=== PATIENT | female | born 1965 | race Caucasian/White ===

== ENCOUNTER 2023-01-29 19:45 | Emergency (ER) | payer MEDICAID, SELFPAY ==
[2023-01-29 19:50] VITALS: BP 160/96; PULSE 88; RESP 16; TEMP 36.9; O2SAT 93
--- NOTE | 2023-01-29 19:58 | ED_ITS ---
HPI - Dental/Oral General Chief complaint: Dental/Oral Stated complaint: dental Time Seen by Provider: 01/29/23 19:46 Source: patient Mode of arrival: walk-in History of Present Illness HPI Narrative: Patient is a 57-year-old female presents to the Emergency Room with concerns of right lower anterior jaw dental pain, states she knows she has poor dentition here with some teeth becoming loose. Her chief concern is infection with onset of pain, denies swelling. Patient sees [facility] for clinic care. Patient denies any mouth trauma or injury. She denies any fevers or chills and states she finds feels well. MD Complaint: Reports tooth pain Location: Tooth # (27) Onset (ago): day(s) Relieving factors: nothing Related Data Previous Rx's Medication Instructions Recorded penicillin V potassium 500 mg 500 mg PO TID dental pain 10 days 01/29/23 tablet #30 tabs Allergies Allergy/AdvReac Type Severity Reaction Status Date / Time No Known Drug Allergies Allergy Verified 01/29/23 19:58 Review of Systems ROS Constitutional Denies: fever or chills Eyes Denies: change in vision Ears, nose, mouth, and throat Denies: throat pain, swelling of lips/tongue or dry mouth PFSH PFSH Social History Smoking status: Current every day smoker Exam Narrative: Exam Narrative: Nurses notes reviewed and patient is noted to be non-hypoxic. General: The patient is comfortable, alert and oriented x3, well appearing, non toxic in no apparent distress. Head: Atraumatic and normocephalic. Eyes: Normal conjunctiva, no exudates. ENT: The oropharynx is normal. No pharyngeal erythema, uvular edema, tonsillar exudates, asymmetry or trismus. Uvula is midline. Mouth is normal to inspection With the exception of a pain on percussion of the tooth #27,28,29 and and evidence of dental caries. There is no evidence of facial asymmetry or abscess formation. Floor of the mouth is soft. No tenderness in the submental or submandibular space. No tongue elevation or deviation. The patient has no evidence of periapical abscess, gingivitis, ANUG or other acute pathology. Airway is patent. Neck: The neck demonstrates normal range of motion. No meningeals signs are present. No stridor. No masses or lymphandenopathy noted. Respiratory: No acute distress, lungs are clear to auscultation, no wheezing, rhonchi, or rales noted. No stridor or retractions are noted. Cardiovascular: Regular rate and rhythm Skin: The skin exam shows no evidence of rashes Neuro: Alert and oriented x4, normal speech Lymphatic: No cervical lymphadenopathy Constitutional: Vital Signs, click to edit/add: Vital Signs - 24 hr 01/29/23 19:50 Temperature 98.4 F Pulse Rate [Monito r] 88 Respiratory Rate 16 Blood Pressure [Ri ght Arm] 160/96 H Pulse Oximetry 93 L Oxygen Delivery Me thod Room Air Course Vital Signs Vital signs: Vital Signs Temperature 98.4 F 01/29/23 19:50 Pulse Rate 88 01/29/23 19:50 Respiratory Rate 16 01/29/23 19:50 Blood Pressure 160/96 H 01/29/23 19:50 Pulse Oximetry 93 L 01/29/23 19:50 Oxygen Delivery Method Room Air 01/29/23 19:50 Temperature 98.4 F 01/29/23 19:50 Pulse Rate 88 01/29/23 19:50 Respiratory Rate 16 01/29/23 19:50 Blood Pressure 160/96 H 01/29/23 19:50 Pulse Oximetry 93 L 01/29/23 19:50 Oxygen Delivery Method Room Air 01/29/23 19:50 MDM - Dental/Oral MDM Narrative Medical decision making narrative: Patient reports. Beginning to dentist promptly, requesting antibiotics, no evidence of abscess but dental tenderness present on palpation, and early infection possible, we'll start penicillin three times a day with food. She will contact dental clinics tomorrow to discuss follow-up for evaluation, she has no dentition in the the upper palate The patient is to followup with primary care physician/dental clinic in next 2-3 days or to return to the emergency department should any of the signs or symptoms worsen or new symptoms develop. Patient had questions answered. The patient agrees with the following Diagnosis and Treatment plan and the patient will be discharged home. Smoking Cessation Patient Acknowledges Need for Cessation: Yes Discharge Plan Discharge Chief Complaint: Dental/Oral Clinical Impression: Dental caries, Pain, dental Patient Disposition: Home, Self-Care Time of Disposition Decision: 20:00 Condition: Good Prescriptions: New penicillin V potassium 500 mg tablet 500 mg PO TID 10 Days Qty: 30 0RF Instructions: Toothache (ED) Stand Alone Forms: Portal Instructions Referrals: VIKA MUÑOZ [Primary Care Provider] - 1 week Follow Up Appointments: Call dental clinic for follow up Discharge Date/Time: 01/29/23 20:11
--- NOTE | 2023-01-29 20:04 | PC.NURSE ---
Pt presents to ER for dental pain on the lower right side of her jaw Pt has known problems with her teeth Pt states she has tried to make an appointment at the dentist that accepts her insurance and they cannot see her for a year Pt believes she needs an antibiotic pt denies any and other complaints
[2023-01-29 20:10] VITALS: BMI 35.1
== END 2023-01-29 20:11 | disposition home or self-care (01) ==
PROVIDERS: Emergency Provider Emergency Medicine; PCP Family Medicine
DX: K02.9 Dental caries, unspecified (principal); K08.89 Other specified disorders of teeth and supporting structures; F17.210 Nicotine dependence, cigarettes, uncomplicated
CPT/HCPCS: 99283